=== PATIENT | male | born 1990 | race Caucasian/White ===

== ENCOUNTER 2017-05-04 11:29 | Emergency (ER) | payer OTHER ==
[~2017-05-04] VITALS: Ht 177.8 cm; Wt 97.5 kg
[2017-05-04] MEDS ORDERED: NEOMY/BACITRA/POLYMYXIN B OINT UD PACKET TP ONE ×2 (12:06→12:15)
--- NOTE | 2017-05-04 13:23 | NUR ---
MSE COMPLETED, PT HAD TRIPLE ANTIBIOTIC OINT PLACED TO RT KNEE W DRESSING,RT KNEE IMMOBILIZOR PLACED, CRUTHES HAND OUT, CRUTH TRAINING COMPLETED, ACI/COPY OF XRAY RESULTS AND WORK NOTE GIVEN. PT AMBULATED WITH CRUTCHES W/O DIFF, TOOK ALL BELONGINGS.
[2017-05-04 13:29] VITALS: BP 115/63
== END 2017-05-04 13:10 | disposition home or self-care (01) ==
LOC: ER 11:29
DX: S80.211A Abrasion, right knee, initial encounter (principal); W01.198A Fall on same level from slipping, tripping and stumbling with subsequent striking against other object, initial encounter; Y93.89 Activity, other specified; Y92.89 Other specified places as the place of occurrence of the external cause; Y99.8 Other external cause status
CPT/HCPCS: A4663

== ENCOUNTER 2017-05-10 17:43 | Emergency (ER) | payer OTHER ==
[~2017-05-10] VITALS: Ht 177.8 cm; Wt 97.5 kg
--- NOTE | 2017-05-10 18:59 | NUR ---
Patient discharged to home in stable conditon. Written and verbal after care instructions given. Patient verbalizes understanding of instructions.PT WALKS IN STEADY GAIT.
== END 2017-05-10 19:07 | disposition home or self-care (01) ==
LOC: ER 17:45
DX: S89.91XA Unspecified injury of right lower leg, initial encounter (principal); W01.10XA Fall on same level from slipping, tripping and stumbling with subsequent striking against unspecified object, initial encounter; Y93.89 Activity, other specified; Y92.89 Other specified places as the place of occurrence of the external cause; Y99.8 Other external cause status
CPT/HCPCS: 99281; A4663